=== PATIENT | female | born 1940 | race Caucasian/White ===

== ENCOUNTER 2016-08-18 15:13 | Emergency (ER) | payer OTHER ==
[~2016-08-18] VITALS: Ht 154.9 cm; Wt 90.0 kg
[2016-08-18] MEDS ORDERED: PRED20 PO (15:35)
[2016-08-18] MEDS ORDERED: ADV500 IH (15:35)
[2016-08-18] MEDS ORDERED: ALBU8HFA IH (15:35)
[2016-08-18] MEDS ORDERED: PHOSLOC PO (15:35)
[2016-08-18] MEDS ORDERED: LEVO125 PO (15:35)
[2016-08-18] MEDS ORDERED: ADV250 IH (15:35)
[2016-08-18] MEDS ORDERED: GABA-529 PO (15:35)
[2016-08-18] MEDS ORDERED: VITAD1000 PO (15:35)
[2016-08-18] MEDS ORDERED: SACC250C6 PO (15:35)
[2016-08-18] MEDS ORDERED: PRAV10TA39 PO (15:35)
[2016-08-18] MEDS ORDERED: AMOX1TAB16 PO (15:35)
[2016-08-18] MEDS ORDERED: HYDROCORTISONE SOD SUCC 100 MG/2 ML VIAL IVP ONE (15:45)
[2016-08-18] MEDS ORDERED: ALBUMIN HUMAN 25%-12.5GM/50ML 50 ML IV ONE (15:45)
[2016-08-18] MEDS ORDERED: SODIUM CHLORIDE 0.9% 500 ML IV ONE ×2 (15:45→16:45)
[2016-08-18] MEDS ORDERED: MIDODRINE HCL 5 MG TABLET PO ONE (15:45)
[2016-08-18 16:07] LABS: BASOPHILS % (AUTO) 0.3 % (0.0-2.0); EOSINOPHILS % (AUTO) 4.6 % (1.0-6.0); HEMATOCRIT 33.4 % (36-46); HEMOGLOBIN 10.9 g/dL (12.0-16.0); LYMPHOCYTES # (AUTO) 1.2 K/uL (1.0-4.8); LYMPHOCYTES % (AUTO) 14.4 % (22.0-44.0); MEAN CORPUSCULAR HGB CONC 32.6 G/dL (31.0-37.0); MEAN CORPUSCULAR VOLUME 98 fL (80-100); MONOCYTES # (AUTO) 0.8 K/uL (0.1-1.0); MONOCYTES % (AUTO) 9.6 % (2.0-9.0); NEUTROPHILS # (AUTO) 5.7 K/uL (1.8-7.7); NEUTROPHILS % (AUTO) 71.1 % (40.0-70.0); PLATELET COUNT (AUTO) 118 K/uL (150-450); RED CELL DISTRIBUTION WIDTH 17.1 % (11.5-14.5)
[2016-08-18 16:13] LABS: ANION GAP 5 mmol/L (8-16); CALCIUM, TOTAL 9.3 mg/dL (8.8-10.5); CARBON DIOXIDE 31 mmol/L (22-29); CHLORIDE 97 mmol/L (98-107); GLOMERULAR FILTR. RATE CALC 7 mL/min (>60); POTASSIUM 4.5 mmol/L (3.5-5.1); SODIUM SERUM 133 mmol/L (136-145); UREA NITROGEN, BLOOD 33 mg/dL (7-18)
[2016-08-18 16:19] LABS: ALANINE AMINOTRANSFERASE 25 U/L (12-78); ASPARTATE AMINOTRANSFERASE 37 U/L (15-37); BILIRUBIN,TOTAL 0.5 mg/dL (0.1-1.0); CREATINE KINASE, TOTAL 44 U/L (26-192); RBC MORPHOLOGY COMMENT ABNORMAL RBC MORPH; TOTAL PROTEIN, SERUM 6.6 g/dL (6.4-8.2)
[2016-08-18 17:39] VITALS: BP 94/53
== END 2016-08-18 18:12 | disposition home or self-care (01) ==
LOC: EMS 15:16
DX: E86.9 Volume depletion, unspecified (principal); E03.9 Hypothyroidism, unspecified; N18.6 End stage renal disease; Z99.2 Dependence on renal dialysis; Z88.8 Allergy status to other drugs, medicaments and biological substances
CPT/HCPCS: 36415; 71010; 80053; 82550; 82962; 84484; 85025; 85610; 93005; 96361; 96365; 96375; 99285; J1720; J7040; P9047